=== PATIENT | female | born 1995 | race Caucasian/White ===

== ENCOUNTER 2021-09-22 11:49 | Day surgery (SDC) | payer OTHER ==
[~2021-09-22] VITALS: Ht 157.5 cm; Wt 159.2 kg
[~2021-09-22 11:49] MED LIST: NS 1,000 ML IV ONE; PANT40TA29 PO; propofoL 200 MG/20 ML VIAL As Ordered ONE
[2021-09-22] MEDS ORDERED: fentaNYL 100 MCG/2 ML INJECTION As Ordered ONE (13:46)
[2021-09-22] MEDS ORDERED: PANTOPRAZOLE 40MG TAB (PROTONIX) PO ONE (14:15)
[2021-09-22 14:21] VITALS: BP 113/65
== END 2021-09-22 14:36 | disposition home or self-care (01) ==
LOC: M OPP 11:49
PROVIDERS: ATTEND Internal Medicine Gastroenterology
DX: K22.89 Other specified disease of esophagus (principal); Z98.84 Bariatric surgery status; K44.9 Diaphragmatic hernia without obstruction or gangrene; R12 Heartburn; Z79.899 Other long term (current) drug therapy; Z87.891 Personal history of nicotine dependence
CPT/HCPCS: 43235; 81025; J3010